=== PATIENT | female | born 1980 | race Caucasian/White ===

== ENCOUNTER 2018-05-01 08:45 | Emergency (ER) | payer BC ==
[2018-05-01 09:00] VITALS: BP 135/89
--- NOTE | 2018-05-01 09:44 | UC ---
Skin Complaint HPI - HPI Summary HPI Summary: 37-year-old woman comes in with a chief complaint of a spreading rash. Patient reports that she's had groin yeast infections chronically and intermittently oh for years. Recently the rash spread up to her lower abdomen in the last couple of days. He tried some [id number] medications that have not helped. She was sick last week with upper respiratory tract infection symptoms. No recent fevers she does feel fatigued today. No new soaps or clothes. Rash does itch. - History of Current Complaint Chief Complaint: UCRash Time Seen by Provider: 05/01/18 09:33 Stated Complaint: SKIN CONCERN Hx Last Menstrual Period: 12/30/14 Pain Intensity: 0 - Allergy/Home Medications Allergies/Adverse Reactions: Allergies Allergy/AdvReac Type Severity Reaction Status Date / Time sulfamethoxazole Allergy See Comment Verified 05/01/18 09:01 [From Bactrim] trimethoprim [From Bactrim] Allergy See Comment Verified 05/01/18 09:01 Home Medications: Home Medications raNITIdine HCl [Ranitidine HCl] 150 mg PO BID 05/01/18 [History Confirmed ] PMH/Surg Hx/FS Hx/Imm Hx Previously Healthy: Yes GI/ History: Gastroesophageal Reflux - Surgical History Surgical History: Yes Surgery Procedure, Year, and Place: c section x 2, cholecystectomy, vaginal warts removed, hysterectomy - Family History Known Family History: Positive: Non-Contributory - Social History Alcohol Use: None Substance Use Type: None Smoking Status (MU): Former Smoker Review of Systems All Other Systems Reviewed And Are Negative: Yes Constitutional: Positive: Negative Skin: Positive: Rash Eyes: Positive: Negative ENT: Positive: Negative Respiratory: Positive: Negative Cardiovascular: Positive: Negative Gastrointestinal: Positive: Negative Motor: Positive: Negative Neurovascular: Positive: Negative Musculoskeletal: Positive: Negative Neurological: Positive: Negative Psychological: Positive: Negative Is Patient Immunocompromised?: No Physical Exam Triage Information Reviewed: Yes Appearance: Well-Appearing, No Pain Distress, Well-Nourished Vital Signs: Initial Vital Signs Temp 97.9 F 05/01/18 08:54 Pulse 77 05/01/18 08:54 Resp 14 05/01/18 08:54 BP 135/89 05/01/18 08:54 Pulse Ox 100 05/01/18 08:54 Vital Signs Reviewed: Yes Eye Exam: Normal Eyes: Positive: Conjunctiva Clear Neck exam: Normal Neck: Positive: Supple Respiratory: Positive: Lungs clear, Normal breath sounds, No respiratory distress Cardiovascular: Positive: RRR Musculoskeletal Exam: Normal Musculoskeletal: Positive: Strength Intact, ROM Intact Neurological Exam: Normal Neurological: Positive: Alert, Muscle Tone Normal Psychological Exam: Normal Psychological: Positive: Age Appropriate Behavior Skin: Positive: Other - On the lower abdomen there is diffuse scaling rash on an erythematous base. No drainage. Course/Dx - Course Course Of Treatment: Rash most probably is a yeast infection. I wrote a prescription for ketoconazole and also going to use Diflucan 150 mg a day for 3 days. Also started on Keflex to avoid the possibility of a bacterial cellulitis. He has follow-up with primary care doctor get reevaluated sooner if not improved worse. - Diagnoses Provider Diagnosis: Rash Discharge - Sign-Out/Discharge Documenting (check all that apply): Patient Departure All imaging exams completed and their final reports reviewed: No Studies - Discharge Plan Condition: Stable Disposition: HOME Prescriptions: Cephalexin CAP* [Keflex CAP*] 500 mg PO TID #30 cap Fluconazole 150 MG TAB* [Diflucan 150 MG TAB*] 150 mg PO DAILY #3 tablet Ketoconazole 1 applic TOPICAL DAILY #30 gm Patient Education Materials: Acute Rash (ED), Skin Yeast Infection (ED) Referrals: Ayden GRIMES,Joseph Costello [Primary Care Provider] - Additional Instructions: FOLLOW UP WITH YOUR DOCTOR IF NOT COMPLETELY IMPROVED. GET RECHECKED FOR ANY WORSENING OF YOUR CONDITION OR QUESTIONS OR CONCERNS. - Billing Disposition and Condition Condition: STABLE Disposition: Home
== END 2018-05-01 09:48 | disposition home or self-care (01) ==
LOC: UCCORT 08:45
DX: R21 Rash and other nonspecific skin eruption (principal); Z88.2 Allergy status to sulfonamides; K21.9 Gastro-esophageal reflux disease without esophagitis; Z79.899 Other long term (current) drug therapy; Z87.891 Personal history of nicotine dependence
CPT/HCPCS: 99212; G0463